=== PATIENT | male | born 1985 | race Caucasian/White ===

== ENCOUNTER 2017-06-25 08:08 | Emergency (ER) | payer BC, OTHER ==
[~2017-06-25] VITALS: Ht 188 cm; Wt 127.3 kg
[2017-06-25 08:13] VITALS: BP 149/71; PULSE 84; TEMP 98.7
[2017-06-25] MEDS ORDERED: ADDERALL5 MG PO (08:15)
[2017-06-25] MEDS ORDERED: LEXAPRO20 MG PO (08:16)
== END 2017-06-25 09:51 | disposition home or self-care (01) ==
LOC: COL.ER 08:08
DX: J02.9 Acute pharyngitis, unspecified (principal); F32.9 Major depressive disorder, single episode, unspecified; F90.9 Attention-deficit hyperactivity disorder, unspecified type